=== PATIENT | male | born 1950 | race Caucasian/White ===

== ENCOUNTER → 2023-10-21 06:33 | Day surgery (SDC) | payer OTHER, SELFPAY ==
[2023-10-21 07:44] LABS: Glucose - Point of Care 117 mg/dl (70-99)
== END ==
LOC: GI 06:33
PROVIDERS: ATTENDING PHYSICIAN Internal Medicine Gastroenterology
DX: Z12.11 Encounter for screening for malignant neoplasm of colon (principal); D12.2 Benign neoplasm of ascending colon; K57.30 Diverticulosis of large intestine without perforation or abscess without bleeding; K64.8 Other hemorrhoids; Z86.010 Personal history of colon polyps
CPT/HCPCS: 45385; 88305; 82962